=== PATIENT | male | born 1970 ===

== ENCOUNTER 2018-02-12 10:30 | Inpatient (IN) | payer OTHER ==
[~2018-02-12] VITALS: Ht 193 cm; Wt 136.1 kg
[2018-02-20] MEDS ORDERED: HYOSCYAMINE0.125 M1 SL (10:36)
[2018-02-20] MEDS ORDERED: OXYC1TAB9 PO (10:36)
[2018-02-20] MEDS ORDERED: NEURONTIN300 MG PO (11:28)
== END 2018-02-20 12:46 | disposition home or self-care (01) | DRG 331 ==
LOC: SURH 02-17 06:00 → O/R 02-17 06:00 → SURG 02-17 07:00 → SURH 02-17 11:28 → MEDI 02-17 11:28 → SURH 02-20 12:46
PROVIDERS: Surgery
PROC: 0DTB4ZZ Resection of Ileum, Percutaneous Endoscopic Approach (ICD-10-PCS; 2018-02-17)
PROC: 4A033R1 Measurement of Arterial Saturation, Peripheral, Percutaneous Approach (ICD-10-PCS; 2018-02-17)
PROC: 4A12X4Z Monitoring of Cardiac Electrical Activity, External Approach (ICD-10-PCS; 2018-02-17)
PROC: 0DTK4ZZ Resection of Ascending Colon, Percutaneous Endoscopic Approach (ICD-10-PCS; principal; 2018-02-17 07:00)
PROC: 3E0F7GC Introduction of Other Therapeutic Substance into Respiratory Tract, Via Natural or Artificial Opening (ICD-10-PCS; 2018-02-18)
PROC: 5A09457 Assistance with Respiratory Ventilation, 24-96 Consecutive Hours, Continuous Positive Airway Pressure (ICD-10-PCS; 2018-02-18)
DX: D17.5 Benign lipomatous neoplasm of intra-abdominal organs (principal); I10 Essential (primary) hypertension; G47.33 Obstructive sleep apnea (adult) (pediatric); E66.8 Other obesity; R73.01 Impaired fasting glucose